=== PATIENT | male | born 1970 | race Caucasian/White ===

== ENCOUNTER → 2016-07-30 | Outpatient (CLI) | payer OTHER ==
--- NOTE | 2016-07-30 07:36 | DIAGNOSTIC IMAGING REPORT ---
MRI THE RIGHT SHOULDER NO CONTRAST CLINICAL HISTORY: Right shoulder pain COMPARISON STUDY: No previous studies for comparison. FINDINGS: The patient was imaged in the sagittal axial and coronal planes. There are mild degenerative changes in the AC joint. There is a defect within the humeral head suspicious for an old Hill-Sachs deformity. Please correlate with any history of prior dislocation. There is subchondral cystic change of the scapular glenoid. The bicipital tendon appears normal. There is no evidence of rotator cuff tear. There is mild edema within the superolateral aspect of the humeral head. There are osteoarthritic changes present within the glenohumeral joint. There is joint space narrowing osteophyte formation. There is no evidence of pathologic muscular atrophy. There is a suspected tear of the anterior glenoid labrum. IMPRESSION: 1. No evidence of rotator cuff tear 2. Normal bicipital tendon 3. 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 Suspected anterior labral tear 5. Moderate degenerative changes within the glenohumeral joint with lateral standing, osteophyte formation, and subchondral cystic change within the scapular glenoid Electronically signed by: Shamar Forman M.D. 07/30/2016 7:34 AM Dictated Date/Time: 07/30/2016 7:30 AM
== END | disposition home or self-care (01) ==
LOC: C.MRIBC 06:39
PROVIDERS: ATTEND Orthopaedic Surgery
DX: M25.511 Pain in right shoulder (principal)